=== PATIENT | female | born 1965 | race Caucasian/White ===

== ENCOUNTER 2021-04-02 18:48 | Emergency (ER) | payer BC ==
[2021-04-02 20:06] LABS: Acetaminophen Less than 6.0 mcg/mL (10.0-30.0); Alcohol 287 mg/dL (Less than 10); Salicylate Less than 8.0 mg/dL (15.0-30.0)
== END 2021-04-02 22:20 ==
LOC: CSHERS 18:48
DX: F10.129 Alcohol abuse with intoxication, unspecified (principal); S00.93XA Contusion of unspecified part of head, initial encounter; S60.511A Abrasion of right hand, initial encounter; S00.31XA Abrasion of nose, initial encounter; W19.XXXA Unspecified fall, initial encounter
CPT/HCPCS: 36415; 70450; 80307